=== PATIENT | male | born 1990 | race Caucasian/White ===

== ENCOUNTER 2018-09-09 02:47 | Emergency (ER) | payer SELFPAY ==
[~2018-09-09] VITALS: Ht 177.8 cm; Wt 68.0 kg
[2018-09-09 02:57] VITALS: BP 119/67
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
[2018-09-09] MEDS ORDERED: IBUPROFEN600 MG ORAL (03:23)
[2018-09-09] MEDS ORDERED: HYDROCODON-ACE1 EA15 ORAL (03:23)
--- NOTE | 2018-09-09 03:26 | NUR ---
ED Nurse Note: LACS by bed side
--- NOTE | 2018-09-09 03:41 | NUR ---
ED Nurse Note: patient has metacarpal fracture of his left wrist, splint was applied.
[2018-09-09 03:43] VITALS: BP 140/78
--- NOTE | 2018-09-09 03:45 | NUR ---
ED Nurse Note: Pt cleared by health care Provider for discharge. DC instructions/prescription was given and explained to pt and verbalized understanding of teachings. All medical deviecs such as ID band removed. Pt is AAO x4, ambulatory and left with all personal belongings, accompany with LACS.
== END 2018-09-09 03:40 ==
LOC: EMR 03:10
DX: S62.625A Displaced fracture of middle phalanx of left ring finger, initial encounter for closed fracture (principal); S00.511A Abrasion of lip, initial encounter; F10.920 Alcohol use, unspecified with intoxication, uncomplicated; Y04.0XXA Assault by unarmed brawl or fight, initial encounter
CPT/HCPCS: 29125; 99283